=== PATIENT | female | born 2000 | race Caucasian/White ===

== ENCOUNTER → 2024-12-28 21:11 | Outpatient (BNV) | payer OTHER, SELFPAY | PROVIDERS: Emergency Provider Emergency Medicine; Visit Provider Specialist | DX: R06.02 Shortness of breath (principal); R07.9 Chest pain, unspecified | CPT/HCPCS: 71045 ==

== ENCOUNTER 2024-12-28 21:46 | Emergency (ER) | payer OTHER, SELFPAY ==
--- NOTE | 2024-12-28 | ECG_ITS ---
Test Reason : CP Blood Pressure : */* mmHG Vent. Rate : 87 BPM Atrial Rate : 87 BPM P-R Int : 174 ms QRS Dur : 76 ms QT Int : 338 ms P-R-T Axes : 68 70 71 degrees QTcB Int : 406 ms Normal sinus rhythm with sinus arrhythmia Possible Left atrial enlargement Borderline ECG No previous ECGs available Referred By: Generic ED Physician Electronically Signed By: AMI CARMONA MD
--- NOTE | ~2024-12-28 | XR_ITS ---
CLINICAL HISTORY: SOB, chest pain 1 view chest x-ray Comparison: None Findings: Heart size is normal. Pulmonary vasculature within normal limits. No consolidation, significant pleural effusion or pneumothorax. No acute fracture. IMPRESSION: 1. No acute findings. This document has been electronically signed by: Pilar Westbrook MD on 12/28/2024 22:42:47
[2024-12-28 21:59] VITALS: BP 116/70; PULSE 73; RESP 17; TEMP 36.4; O2SAT 100; BMI 25.1
[2024-12-28 22:00] LABS: MANUAL DIFF FLAG NO
[2024-12-28 22:06] LABS: Basophils Percent Auto 0.5 % (0-2); Eosinophils Absolute Auto 0.2 X10*3/uL (0.0-0.4); Eosinophils Percent Auto 3.2 % (0-4); Hematocrit 35.4 % (37.0-47.0); Hemoglobin 12.2 g/dl (12.0-16.0); Imm Gran Abs Auto 0.01 X10*3/uL (0.00-0.03); Imm Gran Pct Auto 0.2 % (0.0-0.4); Lymphocytes Absolute Auto 2.2 X10*3/uL (1.2-4.9); Lymphocytes Percent Auto 33.1 % (20-40); Mean Corpuscular HGB Conc 34.5 g/dl (31.0-35.0); Mean Corpuscular Hemoglobin 28.3 pg (27.0-33.0); Mean Corpuscular Volume 82.1 fL (80.0-98.0); Mean Platelet Volume 9.2 fL (9.4-12.3); Monocytes Absolute Auto 0.6 X10*3/uL (0.1-1.2); Monocytes Percent Auto 9.5 % (2-11); Neutrophils Absolute Auto 3.5 x10*3/uL (2.0-8.3); Neutrophils Percent Auto 53.5 % (45-73); Platelet Count 262 X10*3/uL (160-400); Red Blood Count 4.31 X10*6/uL (4.20-5.50); Red Cell Distribution Width 13.1 % (11.0-16.0); White Blood Count 6.6 X10*3/uL (4.8-10.8)
[2024-12-28 22:24] LABS: Alanine Aminotransferase 22 U/L (0-31); Albumin Level 4.7 g/dL (3.5-5.0); Alkaline Phosphatase 58 U/L (39-117); Anion Gap 9 (12-20); Aspartate Amino Transferase 19 U/L (5-31); Bilirubin Total 0.2 mg/dL (0.0-1.0); Blood Urea Nitrogen 18 mg/dL (9-16); Calcium 9.9 mg/dL (8.4-10.2); Carbon Dioxide 23 mmol/L (22-29); Chloride 110 mmol/L (96-108); Estimated Glomerular Filt Rate > 60; Glucose Random 95 mg/dL (60-115); Potassium 3.9 mmol/L (3.3-5.1); Sodium 138 mmol/L (135-145); Total Protein 7.9 g/dL (6.5-8.0)
[2024-12-28 22:25] LABS: HCG Quantitative < 2 mIU/mL
[2024-12-28 22:26] LABS: Troponin-I High Sensitivity < 2.7 ng/L (<3.5-17.0)
--- NOTE | 2024-12-28 23:16 | ED_ITS ---
HPI - Chest Pain General Chief Complaint: Chest Pain Stated Complaint: sob,chest pain,headache Time Seen by Provider: 12/28/24 22:31 Source: plastic top assembler (Tablet, plastic top assembler [id number] Lao) Limitations: language barrier (Voice tablet for interpretation) History of Present Illness ED Provider: Jose Alejandro Mcmahan MD HPI narrative: This is a 24-year-old female with no significant medical history. She reports occasional dyspnea particularly when driving or walking around in hot or warm air. She is in no recent travel she denies history of cardiac issues blood clots or pulmonary problems she is a never smoker. She presents today for subjective difficulty breathing she feels she needs to force deep inspiration and she has some mild discomfort in the parasternal borders when she does this. She is anxious and focusing on this persistently. No cough no hemoptysis no leg edema no chest discomfort associated with exertion. No nausea vomiting diarrhea fever or other symptoms Related Data Previous Rx's ?Medication ?Instructions ?Recorded clonazepam 0.5 mg tablet 0.5 mg PO BEDTIME PRN anxiety #7 12/28/24 tabs clonazepam 0.5 mg tablet 0.5 mg PO BEDTIME PRN anxiety #7 12/29/24 tabs Allergies Allergy/AdvReac Type Severity Reaction Status Date / Time No Known Allergies Allergy Verified 12/28/24 22:05 [facility] Social History Social History Smoked in Last 30 Days: No Use of substances other than those prescribed or required for medical reasons: No Advance Directives: No Do you have a plan to hurt others: No Plan Patient : No Physical Exam 2 Vital Signs: Vital Signs: Last Vital Signs Temp 98 F 12/29/24 00:05 Pulse 71 12/29/24 00:05 Resp 18 12/29/24 00:05 BP 120/69 12/29/24 00:05 Pulse Ox 98 12/29/24 00:05 O2 Del Method Room Air 12/29/24 00:05 BMI result Body Mass Index 25.1 Const: Other: EXAM: Gen: Alert, awake, well appearing, well hydrated. Head: Atraumatic Eyes: Anicteric, Normal conjunctiva. ENT: Moist mucosa, no pallor. ? Neck: Supple. Skin: ?No observable rash or bruising on exposed or examined skin Respiratory: Breathing comfortably, No distress.Clear to auscultation bilaterally, symmetric chest expansion, No wheeze, rales, ronchi. Cardiovascular: Regular rate and rhythm. No murmurs or rub. Well perfused periphery, warm extremities. No edema. ? Abdominal: No FOCAL TENDERNESS. Soft, no objective distension. No palpable masses or obvious organomegaly. ?No guarding, no rebound tenderness or other peritoneal findings. : No flank tenderness. Neuro: Alert. Gross movement of all extremities intact. ? Psych: Calm. Cooperative. MSK: No grossly visible deformity. Vital signs: See flowsheet Procedures Procedure Narrative Procedure Narrative: EMERGENCY ULTRASOUND INTERPRETATION-Limited Echocardiography [This study was ordered, performed, and interpreted by myself. The study reveals: Impression: NORMAL LV FUNCTION, NO RV DYSFUNCTION, NO PERICARDIAL EFFUSION] [Emergent Cardiac for Indication: Views Used: PLAX, PSSA, A4, SX, IVC Pericardial Effusion/Tamponade Findings: NONE RV Dilation (> LV diam in 4ch apical): NONE Global LV Fxn: NORMAL IVC Dilation and Resp Variation: NORMAL Performed by: MD Marj Images were stored CPT:00111] Medical Decision Making Medical Decision Making [facility] Narrative: 24-year-old female with no smoking or personal cardiac history. She has atypical chest discomfort. No objective signs of DVT or leg swelling. No history of DVT or PE. She seems to be somewhat anxious and distressed by her symptoms though her testing is all reassuring. She seems to be forcing deep inspiration. She looks quite well has a reassuring EKG, chest x-ray and bedside echocardiogram. I have tried to reassure her and discussed with the presence of the Lao plastic top assembler on tablet to try clonazepam she is having difficulty sleeping. I think we have ruled out emergent cardiopulmonary etiologies and this is likely more of a psychogenic dyspnea. There was no ECG findings to suggest pericarditis, troponin is negative and we will follow the D-dimer. Differential Diagnosis Differential Diagnoses: The differential diagnosis associated with the presentation includes Musculoskeletal pain, pleuritis, pericarditis, less likely ACS, less likely PE, psychogenic dyspnea, anxiety Lab Data [facility] Lab Attestation statement: I reviewed the patient's lab results. 12/28/24 21:55 12/28/24 21:55 Labs: Lab Results 12/28/24 12/28/24 Range/Units 21:55 23:48 WBC 6.6 (4.8-10.8) X10*3/uL RBC 4.31 (4.20-5.50) X10*6/uL Hgb 12.2 (12.0-16.0) g/dl Hct 35.4 L (37.0-47.0) % MCV 82.1 (80.0-98.0) fL MCH 28.3 (27.0-33.0) pg MCHC 34.5 (31.0-35.0) g/dl RDW 13.1 (11.0-16.0) % Plt Count 262 (160-400) X10*3/uL MPV 9.2 L (9.4-12.3) fL Immature Gran % (Auto) 0.2 (0.0-0.4) % Neut % (Auto) 53.5 (45-73) % Lymph % (Auto) 33.1 (20-40) % Mills % (Auto) 9.5 (2-11) % Eos % (Auto) 3.2 (0-4) % Baso % (Auto) 0.5 (0-2) % Lymph # (Auto) 2.2 (1.2-4.9) X10*3/uL Mills # (Auto) 0.6 (0.1-1.2) X10*3/uL Eos # (Auto) 0.2 (0.0-0.4) X10*3/uL Baso # (Auto) 0.0 (0.0-0.2) X10*3/uL Abs Immat Gran (auto) 0.01 (0.00-0.03) X10*3/uL Absolute Neuts (auto) 3.5 (2.0-8.3) x10*3/uL Absolute Nucleated RBC 0.000 (0.0-0.012) X10*3/uL Nucleated RBC % (auto) 0.0 (0.0-0.2) /100WBC D-Dimer High Sensitivty < 150 NG/ML Sodium 138 (135-145) mmol/L Potassium 3.9 (3.3-5.1) mmol/L Chloride 110 H (96-108) mmol/L Carbon Dioxide 23 (22-29) mmol/L Anion Gap 9 L (12-20) BUN 18 H (9-16) mg/dL Creatinine 0.58 (0.5-1.4) mg/dL Estim Creat Clear Calc 155.0 Estimated GFR > 60 Random Glucose 95 (60-115) mg/dL Calcium 9.9 (8.4-10.2) mg/dL Total Bilirubin 0.2 (0.0-1.0) mg/dL AST 19 (5-31) U/L ALT 22 (0-31) U/L Alkaline Phosphatase 58 (39-117) U/L Troponin I High Sens < 2.7 (<3.5-17.0) ng/L Total Protein 7.9 (6.5-8.0) g/dL Albumin 4.7 (3.5-5.0) g/dL Beta HCG, Quant < 2 mIU/mL Independent Interpretation I performed an independent interpretation of an: Plain X-Ray (No infiltrates, no effusions, normal mediastinum) Discharge Plan Discharge Clinical Impression: Atypical chest pain Patient Disposition: Home, Self-Care Instructions: Noncardiac Chest Pain (ED) Additional Instructions: _ DISCHARGE DIAGNOSES: Subjective sense of the need to take a deep breath, shortness of breath. Discomfort of the chest. No concerning findings on testing HISTORY OF PRESENTATION: ?Shortness of breath about 24 hours EMERGENCY DEPARTMENT COURSE,TESTS, TREATMENTS: While in the ED today you had a normal electrocardiogram, echocardiogram, chest x-ray and blood work including blood counts chemistry blood clotting test, and cardiac enzyme test or heart attack test this is all reassuring. DISCHARGE MEDICATIONS: We have suggested as needed for anxiety or heavy focus on deep breathing that is disturbing you causing distress or anxiety to take a tablet of the anxiety medicine we have given you only as needed. Do not drive or operate machinery while on this. This medicine can make you sleepy follow the instructions FOLLOW-UP: ?Call your primary or general physician soon as possible to discuss your symptoms, your ED visit and to discuss follow up plans Contact a primary physician to follow up. If you develop severe or worsening shortness of breath coughing up blood or phlegm, severe swelling in your legs abdominal pain nausea vomiting fever return back to the emergency department INSTRUCTIONS ?& RETURN PRECAUTIONS: If any symptoms change first call your primary physician, if it is after-hours your primary doctors office should have a provider personnel training officer you can speak with. If the symptoms are severe or very concerning to you then call 911 or return to the ED. Jose Alejandro Mcmahan MD Emergency Physician [facility] Prescriptions: New clonazepam 0.5 mg tablet 0.5 mg PO BEDTIME PRN (Reason: anxiety) Qty: 7 0RF Rx Instructions: administer 30 minutes before bedtime clonazepam 0.5 mg tablet 0.5 mg PO BEDTIME PRN (Reason: anxiety) Qty: 7 0RF Rx Instructions: administer 30 minutes before bedtime Interventions: ED Discharge Assessment Last Done: 12/29/24 00:05 Discharge Date/Time: 12/29/24 00:19 Print Language: Lao
[2024-12-29 00:04] VITALS: BP 120/69; PULSE 71; RESP 18; TEMP 36.6; O2SAT 98
[2024-12-29 00:05] VITALS: BP 120/69; PULSE 71; RESP 18; TEMP 36.6; O2SAT 98
[2024-12-29 00:14] LABS: D Dimer High Sensitivity < 150 NG/ML
== END 2024-12-29 00:19 | disposition home or self-care (01) ==
PROVIDERS: Emergency Provider Emergency Medicine
DX: R07.89 Other chest pain (principal); F41.9 Anxiety disorder, unspecified; I49.8 Other specified cardiac arrhythmias; R06.02 Shortness of breath; R51.9 Headache, unspecified
CPT/HCPCS: 36415; 71045; 80053; 84484; 84702; 85025; 85379; 93005; 99283; 99284

== ENCOUNTER → 2024-12-28 21:49 | Outpatient (BNV) | payer OTHER, SELFPAY | PROVIDERS: Emergency Provider Emergency Medicine; Visit Provider Internal Medicine Cardiovascular Disease | DX: R07.9 Chest pain, unspecified (principal) | CPT/HCPCS: 93010 ==